=== PATIENT | female | born 1975 | race Caucasian/White ===

== ENCOUNTER 2022-12-24 16:02 | Emergency (ER) | payer OTHER, SELFPAY ==
--- NOTE | ~2022-12-24 | XR_ITS ---
EXAM: XR wrist LT 2V DATE: 12/24/2022 17:12 HISTORY: gen L wrist pain x several wks; no injury . COMPARISON: None available. FINDINGS: Normal mineralization. No fracture or dislocation. No lytic or blastic lesion. Joint space s and physes are maintained. No erosion or periosteal change. Soft tissues within normal limits. IMPRESSION: No acute osseous finding in the left wrist. Reviewed, dictated and finalized at location K. MIN MANAGER
[2022-12-24 16:29] VITALS: BP 189/100; PULSE 113; RESP 16; TEMP 36.6; O2SAT 99
--- NOTE | 2022-12-24 17:41 | ED.EXTPRO ---
HPI - Extremity Problem General Chief complaint: Extremity Problem,Nontraumatic Stated complaint: left arm swelling and pain 2 weeks Time Seen by Provider: 12/24/22 17:21 Source: RN notes reviewed History of Present Illness HPI Narrative: Patient presents emergency department from home for left wrist pain. Patient states for the past 2 weeks she has been having pain of her left dorsal wrist just over her ulnar styloid states she has been having swelling in that region with pain she denies any trauma or injury she denies any overuse of any kind she states the pain is only located in this area and does not radiate states she has been intermittently taking ibuprofen with last dose yesterday for the symptoms she denies any numbness or tingling of the extremities Related Data Allergies Allergy/AdvReac Type Severity Reaction Status Date / Time No Known Allergies Allergy Unverified 10/04/17 09:04 Review of Systems Review of Systems: Gen.: Denies fevers or chills Musculoskeletal: See HPI Neuro: Denies numbness, tingling, weakness Skin: Denies rash Endo: Denies DM PMFSH Past Medical History Medical History (Updated 12/24/22 @ 17:44 by Trav Light DO) Patient denies significant medical history Social History Social History (Updated 12/24/22 @ 17:41 by Trav Light DO) Smoking status: Never smoker Exam Narrative: APPEARANCE: No acute distress, nontoxic, resting in bed Eyes: EOMI HEENT: Normocephalic, atraumatic, RESPIRATORY: No respiratory distress MUSCULOSKELETAl: Tender palpation directly over the left ulnar styloid with swelling present with palpation there is a feeling of ganglion cyst over the ulnar styloid remainder of the wrist is nontender full flexion-extension of the wrist without pain full flexion-extension of all 5 MCP joints no tenderness left elbow radial pulse 2+ neurovascular intact NEURO: Awake and alert. Following commands, speech normal, no focal deficits SKIN:: Warm, dry. Normal Color no rash or lesions Course Course Emergency Course: Discussed with patient results of workup and diagnosis. Discussed need for follow-up with primary care, proper use of medication, and reasons to return to the emergency department. Patient understands and agrees to current treatment plan Vital Signs Vital signs: Vital Signs Temperature 97.9 F 12/24/22 16:29 Pulse Rate 113 H 12/24/22 16:29 Respiratory Rate 16 12/24/22 16:29 Blood Pressure 189/100 H 12/24/22 16:29 Pulse Oximetry 99 12/24/22 16:29 Oxygen Delivery Room Air 12/24/22 16:29 Temperature 97.9 F 12/24/22 16:29 Pulse Rate 113 H 12/24/22 16:29 Respiratory Rate 16 12/24/22 16:29 Blood Pressure 189/100 H 12/24/22 16:29 Pulse Oximetry 99 12/24/22 16:29 Oxygen Delivery Room Air 12/24/22 16:29 MDM - Extremity (Nontraumatic) MDM Narrative Medical decision making narrative: Patient presents with pain over left ulnar styloid no trauma or injury there is swelling present point tenderness present does palpate and feel like there is a ganglion cyst present discussed with patient we will have her use a cock up wrist splint for the next week as well as follow-up with orthopedics and placed on ibuprofen Imaging Data Radiologist's impression: ITS Impressions Wrist X-Ray 12/24/22 17:38 IMPRESSION: No acute osseous finding in the left wrist. Discharge Plan Discharge Clinical Impression: Pain and swelling of left wrist Patient Disposition: Home, Self-Care Condition: Stable Instructions: Antibiotic Form, Wrist Sprain (ED) Additional Instructions: Return for increasing pain numbness or tingling the extremities or any other symptoms of concern. Obtain a cock up wrist splint from your local drugstore and wear it for the next 7 days Prescriptions: New ibuprofen 600 mg tablet 600 mg PO TID PRN (Reason: pain) Qty: 14 0RF Follow-up/Referrals: Francisco Arboleda MD [Physician] - (Fo
[2022-12-24] MEDS: IBUPROFEN 600 MG TABLET PO (17:44)
== END 2022-12-24 18:07 | disposition home or self-care (01) ==
PROVIDERS: Emergency Provider Emergency Medicine; PCP Internal Medicine
DX: M25.532 Pain in left wrist (principal); M25.432 Effusion, left wrist
CPT/HCPCS: 73100; 99283; A9270

== ENCOUNTER 2023-02-27 14:33 | Outpatient (CLI) | payer OTHER, SELFPAY ==
--- NOTE | ~2023-02-27 | MR_ITS ---
MRI of the left wrist Technique: Coronal T1 weighted and proton density fat sat images, and axial and sagittal proton-densi ty and proton-density fat-sat images were acquired. Clinical History: Pain Findings: Scapholunate ligament is intact, and there is no widening of the scapholunate interval. Bisi otriquetral ligament is intact. There is no full-thickness perforation of the TFCC. TFCC appears inta ct. Bone marrow signals are essentially unremarkable. Joint spaces of the wrist are preserved. No signifi cant joint effusion. There is a 0.9 x 0.7 x 2.2 cm ganglion cyst extending along the volar aspect of the wrist, anterior is distal radius and scaphoid, possibly extending from the radioscaphoid articula tion (series 8 image 12 for example). Flexor tendons and carpal tunnel are unremarkable. Extensor tendons are unremarkable. No other abnorm al mass lesion or fluid collection identified. Visualized musculature unremarkable. IMPRESSION: 0.9 x 0.7 x 2.2 cm ganglion cyst extending along the volar aspect of the wrist, as detailed above. Reviewed, dictated and finalized at location M.
== END 2023-02-27 14:34 | disposition home or self-care (01) ==
PROVIDERS: PCP Internal Medicine; Visit Provider Nurse Practitioner Family
DX: M25.532 Pain in left wrist (principal); M67.432 Ganglion, left wrist
CPT/HCPCS: 73221

== ENCOUNTER 2023-04-30 10:03 | Emergency (ER) | payer OTHER, SELFPAY ==
[2023-04-30] VITALS (7 sets, daily range): BP systolic 178–213; BP diastolic 101–134; PULSE 98; RESP 18; TEMP 36.3; O2SAT 100
--- NOTE | ~2023-04-30 | XR_ITS ---
XR wrist LT min 3V DATE: 04/30/2023 10:46 INDICATION: Wrist pain. Posterior ganglion cyst TECHNIQUE: 4 views COMPARISON: February 27, 2023 MR left wrist December 24, 2022 left wrist FINDINGS: No fracture or dislocation, periosteal reaction or bone destruction. Joint spaces are prese rved. No erosive change or chondrocalcinosis. IMPRESSION: Negative Reviewed, dictated and finalized at location A. IMPRESSION: Negative
--- NOTE | ~2023-04-30 | XR_ITS ---
XR chest 2V DATE: 04/30/2023 10:45 INDICATION: Chest pain, left neck pain. TECHNIQUE: PA and lateral views COMPARISON: None FINDINGS: Mild cardiomegaly. There is aortic unfolding. No hilar or mediastinal enlargement is detect ed. No pleural effusion or pulmonary vascular congestion or pneumothorax. The lungs are clear of infi ltrate or consolidation. Mild degenerative change of the thoracic spine. IMPRESSION: Mild cardiomegaly Reviewed, dictated and finalized at location A. IMPRESSION: Mild cardiomegaly
--- NOTE | 2023-04-30 10:28 | ECG_ITS ---
Measurements Intervals [place] Rate: 94 P: 45 [place]: 124 QRS: -14 QRSD: 148 T: 35 QT: 393 QTc: 494 Interpretive Statements SINUS RHYTHM RIGHT BUNDLE BRANCH BLOCK [120+ ms QRS DURATION, UPRIGHT V1, 40+ ms S IN I/aVL/V4/V5/V6] ABNORMAL ECG NO PREVIOUS ECG AVAILABLE FOR COMPARISON Electronically Signed On 04-30-2023 12:50:07 CDT by Kalia Salcido M.D.
--- NOTE | 2023-04-30 10:38 | ED.EXTPRO ---
HPI - Extremity Problem General Chief complaint: Extremity Problem,Nontraumatic Stated complaint: left arm pain Time Seen by Provider: 04/30/23 10:05 History of Present Illness HPI Narrative: Patient is a 47-year-old female here for evaluation of left upper extremity pain x4 days. Patient states the pain comes and goes but seems to be worse when she is up and moving the arm, but also gets better when she massages the left upper extremity. She does have a history of a ganglion cyst in the left wrist but she states her pain is more proximal near her shoulder and left neck. She is also having lots of pain in the wrist. Describes it as an aching soreness. She has been following with Dr. Arboleda for the ganglion cyst and was told she may get it removed if it causes severe pain but has not yet contacted him. She has had no fevers, chills, cough, nausea, vomiting, chest pain or shortness of breath. Related Data Home Medications Medication Instructions Recorded Confirmed escitalopram oxalate 10 mg tablet 10 mg PO DAILY 02/02/23 (Lexapro) levothyroxine 25 mcg capsule 25 mcg PO DAILY 02/02/23 metformin 500 mg tablet 500 mg PO DAILY 02/02/23 Allergies Allergy/AdvReac Type Severity Reaction Status Date / Time No Known Allergies Allergy Unverified 03/27/23 15:01 Review of Systems Review of Systems: Gen: Denies fevers or chills Eyes: Denies eye pain or visual change ENT: Denies congestion Respiratory: Denies shortness of breath or cough CV: Denies chest pain or palpitations GI: Denies abdominal pain nausea, emesis or diarrhea : denies burning, urgency, frequency or hematuria Musculoskeletal: Reports left upper extremity pain Neuro: Denies numbness, tingling, weakness or focal weakness Skin: Denies rash Except as documented, all other systems reviewed and negative [facility] Past Medical History Medical History (Updated 04/30/23 @ 12:19 by Karen Ny PA-C) Ganglion, left wrist Left wrist pain Mass of wrist Patient denies significant medical history Social History Social History Smoking status: Never smoker Course Vital Signs Vital signs: Vital Signs Temperature 97.3 F L 04/30/23 10:07 Pulse Rate 98 04/30/23 10:07 Respiratory Rate 18 04/30/23 10:07 Blood Pressure 204/125 H 04/30/23 10:07 Pulse Oximetry 100 04/30/23 10:07 Oxygen Delivery Room Air 04/30/23 10:07 Temperature 97.3 F L 04/30/23 10:07 Pulse Rate 98 04/30/23 10:07 Respiratory Rate 18 04/30/23 10:07 Blood Pressure 178/101 H 04/30/23 12:27 Pulse Oximetry 100 04/30/23 10:12 Oxygen Delivery Room Air 04/30/23 10:07 MDM - Extremity (Nontraumatic) MDM Narrative Medical decision making narrative: Patient is a 47-year-old female here for evaluation of left upper extremity pain intermittent since December. Initially thought to be due to ganglion cyst, but states the pain is now in her left neck and shoulder. Exam is unremarkable; no cyst palpated on exam, there are strong distal pulses, no erythema or swelling of the LUE. No midline tenderness to the neck. Patient hypertensive and with cardiac risk factors so cardiac work-up initiated which reveals right bundle branch on EKG, cardiomegaly on the chest x-ray, troponin is negative. Glucose elevated 300 as well and her hemoglobin is low at 8.8. Patient denies bleeding anywhere or known history of diabetes/hypertension. Her pain is of unclear etiology, may be cervical stenosis versus chronic inflammation due to the cyst, but emphasized importance of patient following up with her primary doctor for the above findings she would likely need to start antihypertensive and antidiabetic agent (bp has been elevated >6 mo per chart review). Feeling improved after pain meds in the ED. Lab Data 04/30/23 10:38 04/30/23 10:38 Labs: Lab Results 04/30/23 Range/Units 10:38 WBC 12.
[2023-04-30 10:43] LABS: Basophils Absolute Auto 0.1 K/mm3 (0.0-0.1); Basophils Percent Auto 0.8 % (0.2-1.2); Eosinophils Absolute Auto 0.6 K/mm3 (0-0.3); Eosinophils Percent Auto 4.5 % (0-4.4); Hematocrit 32.2 % (37.0-47.0); Hemoglobin 8.8 g/dL (12.0-15.0); Immature Granulocyte Absolute 0.07 K/mm3 (0.00-0.031); Immature Granulocyte Percent A 0.6 % (0-0.5); Lymphocytes Absolute Auto 1.26 K/mm3 (0.9-3.2); Lymphocytes Percent Auto 10.1 % (18.3-44.2); Mean Corpuscular HGB Conc 27.3 g/dl (32-36); Mean Corpuscular Hemoglobin 16.6 pg (26-34); Mean Corpuscular Volume 60.6 fl (80-100); Mean Platelet Volume 8.4 fl (7.4-10.4); Monocytes Absolute Auto 0.7 K/mm3 (0.1-0.6); Monocytes Percent Auto 5.5 % (2.6-8.5); Neutrophils Absolute Auto 9.8 K/mm3 (1.3-6.7); Neutrophils Percent Auto 78.5 % (45.5-73.1); Platelet Count Result 377 k/mm3 (150-375); Red Blood Count 5.31 M/mm3 (4.2-5.4); White Blood Count 12.4 K/mm3 (4.5-10.0)
[2023-04-30] MEDS: HYDROcodone/acetaminophen (*CRX) 5-325 MG TABLET 1 TAB PO (10:47)
[2023-04-30 10:55] LABS: Alanine Aminotransferase 24 U/L (6-35); Albumin Level 4.1 g/dL (3.5-5.1); Alkaline Phosphatase 172 U/L (38-126); Anion Gap 8 mmol/L (8-16); Aspartate Amino Transferase 24 U/L (14-36); Bilirubin,Total 0.6 mg/dL (0.2-1.3); Blood Urea Nitrogen 12 mg/dL (7-17); Calcium 8.8 mg/dL (8.4-10.2); Carbon Dioxide 29 mmol/L (22-30); Chloride 98 mmol/L (98-107); Estimated CRCL calculation 101 ml/min; Estimated Glomerular Filt Rate > 60; Glucose 300 mg/dL (65-110); Potassium 4.4 mmol/L (3.4-5.0); Sodium 135 mmol/L (137-145)
[2023-04-30 11:06] LABS: Anisocytosis 3+ (NORMAL); Hypochromasia 2+ (NORMAL); Microcytosis 2+ (NORMAL); Platelet Estimate Adequate (Adequate); Schistocytes None Seen (NORMAL); Troponin I < 0.012 ng/mL (0.000-0.034)
== END 2023-04-30 12:30 | disposition home or self-care (01) ==
PROVIDERS: Emergency Provider Physician Assistant; PCP Internal Medicine
DX: M25.532 Pain in left wrist (principal)
CPT/HCPCS: 36415; 71046; 73110; 80053; 84484; 85025; 93005; 99284; A9270

== ENCOUNTER 2024-09-04 08:41 | Outpatient (CLI) | payer OTHER, SELFPAY | END 2024-09-04 08:42 | disposition home or self-care (01) | PROVIDERS: PCP Internal Medicine; Visit Provider Otolaryngology | DX: H90.3 Sensorineural hearing loss, bilateral (principal); H92.02 Otalgia, left ear; H93.12 Tinnitus, left ear | CPT/HCPCS: 92557; 92567 ==